=== PATIENT | male | born 2005 | race Hispanic/Latino ===

== ENCOUNTER 2024-06-14 17:36 | Emergency (ER) | payer SELFPAY ==
[~2024-06-14] VITALS: Ht 172.7 cm; Wt 81.6 kg
[2024-06-14 17:53] VITALS: BP 130/66; PULSE 112; RESP 20; TEMP 98.6; O2SAT 96
[2024-06-14 18:16] LABS: SARS-CoV-2, RNA, NAAT NEGATIVE SARS CoV-2 (NEGATIVE)
[2024-06-14 18:22] LABS: INFLUENZA TYPE A Negative For Type A (NEGATIVE); INFLUENZA TYPE B Negative For Type B (NEGATIVE)
[2024-06-14 18:32] LABS: RAPID GROUP A STREP positive (NEGATIVE)
[2024-06-14] MEDS ORDERED: AMOX1TAB16 PO (18:58)
--- NOTE | 2024-06-14 18:59 | ERN ---
ED Note History of Present Illness Stated Complaint: COUGH,FEVER,THROAT PAIN Chief Complaint: Cough Time Seen by MD: 17:40 Time Seen by Midlevel: 17:45 Dictation: 18-year-old male with no past medical history coming in complaining of cough, throat pain and fever for one week. Denies having any nausea or vomiting or diarrhea. Denies any sick contacts. Allergies: Coded Allergies: No Known Drug Allergies (Unverified Allergy, Unknown, 06/14/24) Past Medical History Past Medical History: No Pertinent History Surgical History: None Review of System Dictation Constitutional: Positive for fever andchills, and no weight loss Eyes: Negative for injury, pain,redness, and discharge ENT: Negative for injury,pain or swelling complaining of throat pain Cardiovascular: Negative for chest pain, palpitations, and edema Respiratory: Negative for shortness of breath, cough, and wheezing, Abdomen/GI: Negative for abdominal pain, nausea, vomiting, diarrhea, and constipation Back: Negative for injury and pain : Negative for injury, bleeding and discharge MS/Extremity: Negative for injury and deformity Skin: Negative for rash, and discoloration Neuro: Negative for headache, weakness, numbness, tingling, and seizure Psych: Negative for suicide ideation, homicidal ideation, and hallucinations Review of Systems: was completed Initial Vital Sign VS Vital Signs Date Time Temp Pulse Resp B/P (MAP) Pulse Ox O2 Delivery O2 Flow Rate FiO2 06/14/24 17:51 98.6 112 20 130/66 96 Room Air 0 06/14/24 17:53 21 Physical Exam Dictation General: awake, alert, NAD Head/Face: Normocephalic, atraumatic Eyes: PERRL, EOMI, vision at baseline ENT: oral cavity clear, TMs clear, no signs of infection erythema noted to the throat and mild swelling of tonsils, uvula midline no exudate or effacement Neck: Trachea midline, supple, no nuchal rigidity Cardiovascular: RRR, normal S1/S2, No MRGs, no JVD Respiratory: CTAB, no respiratory distress, No rales or wheezes Abdomen: Soft, non-tender, non-distended, normal bowel sounds, no guarding or rebound. Skin: Warm, dry, normal turgor, no rash MS/Extremity: Pulses equal, no cyanosis, neurovascular intact, FROM Neuro: COAx4, GCS 15, strength 5/5, CN 2-12 intact, normal cerebellar exam, normal gait, Psych: Normal behavior, mood, and affect normal Results (Laboratory/Radiology) Laboratory/Radiology Laboratory Tests Test 06/14/24 17:54 Influenza Type A Antigen Negative For Type A Influenza Type B Antigen Negative For Type B SARS-CoV-2, RNA, NAAT NEGATIVE SARS CoV-2 Group A Streptococcus Rapid positive (NEGATIVE) *A Labs Reviewed?: Yes ED Course ED Course Orders Procedure Category Date Status Time Covid Rna Naat LAB 06/14/24 Complete 17:48 Influenza Type A & B, LAB 06/14/24 Complete Rapid 17:48 Rapid (Group A Strep) LAB 06/14/24 Complete 17:48 Vital Signs Date Time Temp Pulse Resp B/P (MAP) Pulse Ox O2 Delivery O2 Flow Rate FiO2 06/14/24 17:53 98.6 112 20 130/66 96 Room Air* 0 21 06/14/24 17:51 98.6 112 20 130/66 96 Room Air 0 Medical Decision Making MDM MDM: 18-year-old male with no past medical history coming in complaining of cough, throat pain and fever for one week. Denies having any nausea or vomiting or diarrhea. Denies any sick contacts. Serology positive for strep. Patient received steroid, Rocephin here in the ER and we will discharge patient with amoxicillin. Differential diagnosis: Influenza, COVID, strep, pharyngitis Rationale: Tests considered and ordered secondary to shared decision making include: Previous outside records reviewed: Old ER visits. Risk of complication and/or morbidity or mortality of patient management: None Medications-Per medication reconciliation Need for hospitalization: Patient does not meet criteria for hospitalization. Need for emergency major/minor surgery: No There are no social concerns with this patient. Prescription drug management Prescriptions will include symptomatic care Patient's prior external medical records from other ER visits were reviewed by me as indicated. Prior testing and results from previous visits were reviewed. Prior tests were taken into account with medical decision making and resource utilization, independent historian/historians were used to obtain complete [facility] history. I independently interpreted the test that were performed, results were reviewed by me and considered findings on radiology if ordered. Medical management and examination interpretation discussions were had by me with other qualified healthcare professionals as indicated for the patient's care. DX & DISP Disposition: Discharge Departure Impression: Primary Impression: Strep throat Condition: Stable Scripts Amoxicillin/Potassium Clav (Amox Tr-K Clv 875-125 mg Tab) 875 Mg-125 Mg Tablet 1 EACH PO BID for 5 Days, #10 TAB 0 Refills Prov: KIMBERLY PUENTES NP 06/14/24 Additional Instructions: You can take Tylenol or Motrin for pain management. Finished antibiotics. Follow up with your PCP in 1-2 days. Return to the ER symptoms worsen. Referrals: SELF,REFERRAL (PCP) Time of Disposition: 18:58 I have reviewed the case, and I agree with, Diagnosis and Plan KIMBERLY PUENTES NP Jun 14, 2024 18:59
[2024-06-14] MEDS: dexaMETHasone SOD PHOSPHATE 4 MG/ML 1ML VIAL IM STA (19:09)
[2024-06-14] MEDS: cefTRIAXone 1G VIAL IM STA (19:09)
== END 2024-06-14 19:40 | disposition home or self-care (01) ==
LOC: EDH 17:36
DX: J02.0 Streptococcal pharyngitis (principal); Z20.822 Contact with and (suspected) exposure to COVID-19
CPT/HCPCS: 99284; 87635; 87880; 87804 ×2; 96372 ×2; J1100; J0696